=== PATIENT | male | born 1990 | race Caucasian/White ===

== ENCOUNTER 2021-09-25 12:51 | Emergency (ER) | payer BC ==
[~2021-09-25] VITALS: Ht 182.9 cm; Wt 86.4 kg
[2021-09-25 13:02] VITALS: BP 132/71
[2021-09-25 14:09] LABS: AMPHET/METH SCREEN,URINE NEGATIVE (NEGATIVE); BARBITURATE SCREEN, URINE NEGATIVE (NEGATIVE); BENZODIAZEPINES SCREEN,URINE NEGATIVE (NEGATIVE); CANNABINOID SCREEN,URINE NEGATIVE (NEGATIVE); COCAINE SCREEN,URINE NEGATIVE (NEGATIVE); METHADONE SCREEN, URINE NEGATIVE (NEGATIVE); OPIATE SCREEN,URINE NEGATIVE (NEGATIVE)
[2021-09-25 14:11] LABS: PHENCYCLIDINE SCREEN,URINE NEGATIVE (NEGATIVE)
== END 2021-09-25 16:16 | disposition home or self-care (01) ==
LOC: EMS 12:57
DX: F31.9 Bipolar disorder, unspecified (principal)
CPT/HCPCS: 99284